=== PATIENT | female | born 1995 | race Caucasian/White ===

== ENCOUNTER 2018-03-02 22:09 | Emergency (ER) | payer BC, OTHER ==
[~2018-03-02] VITALS: Ht 167.6 cm; Wt 82.7 kg
[~2018-03-02 22:09] MED LIST: ALBU1AER9 INH; AMPH20TA2 PO; DESV50TA PO; DPPI150 INJ; LAMO200T35 PO; TPRSR/25 PO
[2018-03-02 22:20] VITALS: O2SAT 100
[2018-03-02 22:41] VITALS: TEMP 36.9; Ht 167.6 cm; Wt 82.7 kg
--- NOTE | 2018-03-02 22:41 | EMERGENCY ROOM VISIT NOTE ---
History Report prepared by Glen: Jesus Garza Under the Supervision of: Dr. Zach Mace M.D. First contact with patient: 22:30 Chief Complaint: OVERDOSE (ACCIDENTAL) Stated Complaint: OVERDOSE History of Present Illness The patient is a 22 year old white female with a past medical history of depression and anxiety who presents to the ED with a cc of a constant overdose beginning at 1900. Per nursing, the patient takes Xanax for her history of anxiety. The patient was recently increased in dosage from 0.25 mg Xanax to 0.5 mg dosage. She took her normal 0.5 mg dose and Lexapro around 1900. The patient took more Xanax resulting in a total of 2.5 mg. Positive cutting self yesterday. Negative hallucinations, suicidal ideations, homicidal ideations. Source of History: patient Onset: 1899 Position: other (global) Quality: other (global) Timing: constant Note: Negative hallucinations, suicidal ideations, homicidal ideations. Review of Systems See HPI for pertinent positives and negatives. A total of ten systems were reviewed and were otherwise negative. Past Medical & Surgical Medical Problems: (1) Anxiety (2) Depression Family History Patient reports no known family medical history. Social History Smoking Status: Never Smoker Drug Use: none Marital Status: single Occupation Status: [employer] Current/Historical Medications Scheduled Alprazolam (Xanax), 1 MG PO DIRECTED Desvenlafaxine Succinate Er (Pristiq), 50 MG PO DAILY Escitalopram Oxalate (Lexapro), 20 MG PO DAILY Lisdexamfetamine Dimesylate (Vyvanse), 40 MG PO DAILY Scheduled PRN Albuterol Sulfate (Proair Hfa), 2 PUFF INH Q4H PRN for SOB/Wheezing Ibuprofen (Motrin), 800 MG PO DIRECTED PRN for Pain Allergies Coded Allergies: No Known Allergies (Unverified , 03/03/18) Physical Exam Vital Signs Date Time Temp Pulse Resp B/P (MAP) Pulse Ox O2 Delivery O2 Flow Rate FiO2 03/03/18 01:45 93 16 116/82 98 03/03/18 00:01 84 18 111/89 99 Room Air 03/02/18 22:50 86 18 125/88 94 Room Air 03/02/18 22:41 36.9 106 20 125/88 98 Room Air 03/02/18 22:20 96 03/02/18 22:20 100 Room Air Physical Exam GENERAL: Awake, alert, well-appearing, NAD HENT: Normocephalic, atraumatic. EYES: Normal conjunctiva. Sclera non-icteric. Dilated sluggish pupils, equally round and reactive. NECK: Supple. No nuchal rigidity. FROM. RESPIRATORY: CTAB, no rhonchi, wheezing, crackles CARDIAC: RRR, no MRG ABDOMEN: Soft, NTND, BS+ MSK: No chest wall TTP, no LE edema NEURO: CN 2-12 intact, 5/5 upper and lower extremity strength, no dysmetria, no drift, good finger to nose, no sensory deficits. Finger count grossly normal. PERRL. Slowed deliberate speech. SKIN: No rash or jaundice noted. Bandaged incisional wounds over the right forearm. Wounds are.hemostatic. Medical Decision & Procedures Laboratory Results 03/02/18 22:20 Red Blood Count 4.59, Mean Corpuscular Volume 91.3, Mean Corpuscular Hemoglobin 31.6, Mean Corpuscular Hemoglobin Concent 34.6, Mean Platelet Volume 9.4, Neutrophils (%) (Auto) 43.3, Lymphocytes (%) (Auto) 47.0, Monocytes (%) (Auto) 8.4, Eosinophils (%) (Auto) 0.7, Basophils (%) (Auto) 0.4, Neutrophils # (Auto) 2.37, Lymphocytes # (Auto) 2.57, Monocytes # (Auto) 0.46, Eosinophils # (Auto) 0.04, Basophils # (Auto) 0.02 03/02/18 22:20 Test 03/02/18 22:20 03/02/18 22:55 03/03/18 00:30 White Blood Count 5.47 K/uL (4.8-10.8) Red Blood Count 4.59 M/uL (4.2-5.4) Hemoglobin 14.5 g/dL (12.0-16.0) Hematocrit 41.9 % (37-47) Mean Corpuscular Volume 91.3 fL (80-100) Mean Corpuscular Hemoglobin 31.6 pg (25-34) Mean Corpuscular Hemoglobin Concent 34.6 g/dl (32-36) Platelet Count 270 K/uL (130-400) Mean Platelet Volume 9.4 fL (7.4-10.4) Neutrophils (%) (Auto) 43.3 % Lymphocytes (%) (Auto) 47.0 % Monocytes (%) (Auto) 8.4 % Eosinophils (%) (Auto) 0.7 % Basophils (%) (Auto) 0.4 % Neutrophils # (Auto) 2.37 K/uL (1.4-6.5) Lymphocytes # (Auto) 2.57 K/uL (1.2-3.4) Monocytes # (Auto) 0.46 K/uL (0.11-0.59) Eosinophils # (Auto) 0.04 K/uL (0-0.5) Basophils # (Auto) 0.02 K/uL (0-0.2) RDW Standard Deviation 46.1 fL (36.4-46.3) RDW Coefficient of Variation 13.8 % (11.5-14.5) Immature Granulocyte % (Auto) 0.2 % Immature Granulocyte # (Auto) 0.01 K/uL (0.00-0.02) Anion Gap 7.0 mmol/L (3-11) Est Creatinine Clear Calc Drug Dose 109.6 ml/min Estimated GFR () 108.9 Estimated GFR (Non- 93.9 BUN/Creatinine Ratio 11.8 (10-20) Calcium Level 9.2 mg/dl (8.5-10.1) Total Bilirubin 0.5 mg/dl (0.2-1) Direct Bilirubin 0.1 mg/dl (0-0.2) Aspartate Amino Transf (AST/SGOT) 23 U/L (15-37) Alanine Aminotransferase (ALT/SGPT) 34 U/L (12-78) Alkaline Phosphatase 108 U/L (45-117) Total Protein 7.5 gm/dl (6.4-8.2) Albumin 4.1 gm/dl (3.4-5.0) Thyroid Stimulating Hormone (TSH) 1.060 uIu/ml (0.300-4.500) Salicylates Level < 1.7 mg/dl (2.8-20) Acetaminophen Level < 2 ug/ml (10-30) Ethyl Alcohol mg/dL < 3.0 mg/dl (0-3) Urine Color YELLOW Urine Appearance CLEAR (CLEAR) Urine pH 5.5 (4.5-7.5) Urine Specific Skipwith 1.009 (1.000-1.030) Urine Protein NEG (NEG) Urine Glucose (UA) NEG (NEG) Urine Ketones 1+ (NEG) Urine Occult Blood NEG (NEG) Urine Nitrite NEG (NEG) Urine Bilirubin NEG (NEG) Urine Urobilinogen NEG (NEG) Urine Leukocyte Esterase TRACE (NEG) Urine WBC (Auto) 1-5 /hpf (0-5) Urine RBC (Auto) 0-4 /hpf (0-4) Urine Hyaline Casts (Auto) 0 /lpf (0-5) Urine Epithelial Cells (Auto) 10-20 /lpf (0-5) Urine Bacteria (Auto) NEG (NEG) Urine Test NEG (NEG) Urine Opiates Screen NEG (NEG) Urine Methadone, Qualitative NEG (NEG) Urine Barbiturates NEG (NEG) Urine Phencyclidine (PCP) Level NEG (NEG) Ur Amphetamine/Methamphetamine POS (NEG) MDMA (Ecstasy) Screen NEG (NEG) Urine Benzodiazepines Screen POS (NEG) Urine Cocaine Metabolite NEG (NEG) Urine Marijuana (THC) NEG (NEG) Laboratory results reviewed by me Medications Administered Medications (Trade) Dose Ordered Sig/Hoang Route Start Time Stop Time Status Last Admin Dose Admin Ibuprofen (Motrin Tab) 600 mg NOW STAT PO 03/03/18 01:00 03/03/18 01:01 DC 03/03/18 01:10 600 MG Acetaminophen (Tylenol Tab) 650 mg NOW STAT PO 03/03/18 01:00 03/03/18 01:01 DC 03/03/18 01:10 650 MG ECG Per My Interpretation Indication: other (overdose) Rate (beats per minute): 79 Rhythm: normal sinus Findings: other (Normal intervals, normal axis, No STS changes, No TWI) ED Course 2234: The patient was evaluated in room B01. A complete history and physical exam was performed. 0134: I reevaluated the patient. Discussed results and discharge instructions: She verbalized understanding and agreement. The patient is ready for discharge. Medical Decision Nursing notes reviewed. Ancillary studies and prior records reviewed. The patient is a 22 year old white female with a past medical history of depression and anxiety who presents to the ED with a cc of a constant overdose beginning at 1900. The patient's presentation and history were concerning for etiologies such as mood disorder, infection, hypoglycemia, electrolyte abnormalities, cardiac sources, intracerebral event, toxicologic, neurologic, as well as others were entertained. Patient was seen and evaluated the bedside. Of note the patient did have recent change in her Xanax prescription from 0.25 mg 0.5 mg. The patient had been advised in the past never take more than her dosing twice daily. Patient had taken 5 total doses this evening. Patient denies taking any additional supplements, [id number] medications, alcohol, tobacco, or drugs. Patient denied any SI, HI, or AVH. Patient had admitted to prior self-harm with cutting. On exam the patient is a little slow to react and respond over the patient does follow commands and has a nonfocal neurologic exam. Patient had blood work completed along with urinalysis, urine test, urine drug screen, and tox screen. Patient's EKG does not show any ischemic change or overt arrhythmia. Patient's blood work is unremarkable. Patient's urine drug screen was consistent with her Vyvanse use as well as her benzodiazepine use. Patient's other tox labs were unremarkable. Patient did complain of chest pain and a repeat EKG was obtained which showed no acute change. Believe that this is less likely to be related to PE or MO as the patient has normal vital signs the patient does not have other signs or symptoms consistent with the aforementioned. Patient was advised that she should only take her medications as prescribed. I did have the mental specialist evaluate the patient. She does not believe that she would benefit from acute inpatient psychiatric treatment. Again the patient denied any SI, HI , or AVH. There is a concern that the patient may be abusing her medications. Patient was given some resources as an outpatient told to follow-up. Patient was given strict follow-up, discharge, and return precautions. All questions were answered. Patient was deemed suitable for outpatient follow-up at this time. Patient agreed with the plan of care and was safely discharged home. Medication Reconcilliation Current Medication List: was personally reviewed by me Blood Pressure Screening Patient's blood pressure: Normal blood pressure Impression Primary Impression: Overdose Scribe Attestation The scribe's documentation has been prepared under my direction and personally reviewed by me in its entirety. I confirm that the note above accurately reflects all work, treatment, procedures, and medical decision making performed by me. Departure Information Dispostion Home / Self-Care Referrals [facility] (PCP) Patient Instructions [facility] Additional Inst[facility] Please return to the emergency department if you have worsening or recurrent symptoms not amenable to at-home treatment. Please call for a follow-up appointment with her primary care physician. Please take your medications as prescribed. If you have other concerns and/or complaints please feel free to also call your primary care physician's office or return the ED for further evaluation, management, and treatment. Take your medications as prescribed. You have been examined and treated today on an emergency basis only. This is not a substitute for, or an effort to provide, complete comprehensive medical care. It is impossible to recognize and treat all injuries or illnesses in a single emergency department visit. It is therefore important that you follow up closely with [facility], your PCP, and/or your specialist(s). Call as soon as possible for an appointment. Thank you for your time and consideration. I look forward to speaking with you again soon. Please don't hesitate to call us if you have any questions. Problem Qualifiers Primary Impression: Overdose Encounter type: initial encounter Injury intent: undetermined intent Qualified Codes: T50.904A - Poisoning by unspecified drugs, medicaments and biological substances, undetermined, initial encounter
[2018-03-02 22:49] LABS: BASO % 0.4 %; BASO ABS # 0.02 K/uL (0-0.2); EOS % 0.7 %; EOS ABS # 0.04 K/uL (0-0.5); HEMATOCRIT 41.9 % (37-47); HEMOGLOBIN 14.5 g/dL (12.0-16.0); IG# 0.01 K/uL (0.00-0.02); LYMPH ABS # 2.57 K/uL (1.2-3.4); MEAN CELL VOLUME 91.3 fL (80-100); MEAN CORPUSCULAR HEMOGLOBIN 31.6 pg (25-34); MEAN CORPUSCULAR HGB CONC 34.6 g/dl (32-36); MEAN PLATELET VOLUME 9.4 fL (7.4-10.4); MONO % 8.4 %; MONO ABS # 0.46 K/uL (0.11-0.59); NEUT % 43.3 %; NEUT ABS # 2.37 K/uL (1.4-6.5); PLATELET COUNT 270 K/uL (130-400); RED CELL DISTRIBUTION WIDTH CV 13.8 % (11.5-14.5); RED CELL DISTRIBUTION WIDTH SD 46.1 fL (36.4-46.3); WHITE BLOOD COUNT 5.47 K/uL (4.8-10.8)
[2018-03-02 22:57] LABS: ALBUMIN 4.1 gm/dl (3.4-5.0); CALCIUM 9.2 mg/dl (8.5-10.1); CREATININE 0.88 mg/dl (0.60-1.20)
[2018-03-02 23:07] LABS: TOTAL PROTEIN 7.5 gm/dl (6.4-8.2)
[2018-03-03] MEDS ORDERED: ALPR1TAB3 PO (00:13)
[2018-03-03] MEDS ORDERED: LISD40CA PO (00:14)
[2018-03-03] MEDS ORDERED: ESCI1TAB10 PO (00:16)
[2018-03-03] MEDS ORDERED: IBUP-1428 PO (00:17)
[2018-03-03] MEDS ORDERED: ACETAMINOPHEN 325 MG TAB PO STA (01:00)
[2018-03-03] MEDS ORDERED: IBUPROFEN 600 MG TAB PO STA (01:00)
[2018-03-03 01:45] VITALS: BP 116/82; PULSE 93; O2SAT 98
== END 2018-03-03 01:46 | disposition home or self-care (01) ==
LOC: C.EDB 22:09 → C.EDA 03-03 01:46
DX: T50.904A Poisoning by unspecified drugs, medicaments and biological substances, undetermined, initial encounter (principal); X58.XXXA Exposure to other specified factors, initial encounter; F41.9 Anxiety disorder, unspecified; F32.9 Major depressive disorder, single episode, unspecified